=== PATIENT | female | born 1990 | race African-American/Black ===

== ENCOUNTER 2023-11-13 18:31 | Emergency (ER) | payer OTHER ==
[~2023-11-13] VITALS: Ht 177.8 cm; Wt 75.0 kg
[2023-11-13 18:35] VITALS: TEMP 97.8
[2023-11-13 19:47] LABS: GLUCOMETER DEV NAME(LOC) ERT.5; GLUCOSE,POINT OF CARE 68 MG/DL (70-110)
[2023-11-13] MEDS: FLUCONAZOLE 150 MG TABLET PO ONE (19:57)
[2023-11-13 20:30] LABS: APPEARANCE,URINE CLEAR (CLEAR); BILIRUBIN,URINE NEGATIVE (NEGATIVE); COLOR,URINE YELLOW (YELLOW); GLUCOSE, URINE (UA) NEGATIVE (NEGATIVE); KETONES,URINE NEGATIVE (NEGATIVE); LEUKOCYTE ESTERASE ,URINE NEGATIVE (NEGATIVE); NITRATE,URINE NEGATIVE (NEGATIVE); OCCULT BLOOD,URINE NEGATIVE (NEGATIVE); PH,URINE 7.5 (5.0-8.0); PROTEIN,URINE 30-70 mg/dL (NEGATIVE); SPECIFIC GRAVITIY, URINE 1.033 (1.003-1.030)
[2023-11-13 20:36] VITALS: BP 110/64; PULSE 89; RESP 18
[2023-11-13 20:48] LABS: BACTERIA,URINE Rare /HPF (None Seen); RBC,URINE 0-2 /HPF (0-2); SQUAMOUS EPITHELIAL CELL,UR Few /LPF (None Seen); WBC,URINE 0-2 /HPF (0-5)
[2023-11-13] MEDS ORDERED: FLUC150T61 PO (21:04)
[2023-11-13] MEDS ORDERED: CLOT21CR13 VG (21:04)
== END 2023-11-13 21:14 | disposition home or self-care (01) ==
LOC: EMS 18:34
DX: N76.0 Acute vaginitis (principal); R30.0 Dysuria
CPT/HCPCS: 81001; 82962; 84703; 99283